=== PATIENT | female | born 1945 | race Caucasian/White ===

== ENCOUNTER 2017-10-21 18:48 | Emergency (ER) | payer OTHER, BC ==
[~2017-10-21] VITALS: Ht 167.6 cm; Wt 90.0 kg
[2017-10-21 20:54] VITALS: BP 133/77
== END 2017-10-21 20:54 | disposition home or self-care (01) ==
LOC: ED 18:48
DX: D22.9 Melanocytic nevi, unspecified (principal); I10 Essential (primary) hypertension; Z88.0 Allergy status to penicillin; Z88.5 Allergy status to narcotic agent

== ENCOUNTER 2017-10-31 13:42 | Emergency (ER) | payer OTHER, BC ==
[2017-10-31 13:51] VITALS: BP 134/84
== END 2017-10-31 15:00 | disposition home or self-care (01) ==
LOC: ED 13:42
DX: S91.012A Laceration without foreign body, left ankle, initial encounter (principal); I83.92 Asymptomatic varicose veins of left lower extremity; X58.XXXA Exposure to other specified factors, initial encounter; Y93.89 Activity, other specified; Y99.8 Other external cause status; Y92.89 Other specified places as the place of occurrence of the external cause
CPT/HCPCS: J2001

== ENCOUNTER 2017-11-02 15:21 | Emergency (ER) | payer OTHER, BC ==
[~2017-11-02] VITALS: Ht 167.6 cm; Wt 90.7 kg
[2017-11-02 15:37] VITALS: BP 136/73; Ht 167.6 cm; Wt 90.7 kg
== END 2017-11-02 16:08 | disposition home or self-care (01) ==
LOC: ED 15:21
DX: I83.892 Varicose veins of left lower extremity with other complications (principal); I10 Essential (primary) hypertension; E78.00 Pure hypercholesterolemia, unspecified; Z88.0 Allergy status to penicillin; Z88.5 Allergy status to narcotic agent